=== PATIENT | male | born 1940 | race Caucasian/White ===

== ENCOUNTER 2019-01-10 15:17 | Inpatient (IN) | payer OTHER ==
[~2019-01-10] VITALS: Ht 170.2 cm; Wt 69.9 kg
[2019-01-10 15:22] VITALS: BP 104/65
--- NOTE | 2019-01-10 15:28 | NUR ---
PT W/C ASSISTED TO BED 3.
--- NOTE | 2019-01-10 15:40 | NUR ---
78/M C/O PAIN S/P FALL APPROX 10 MIN PRIOR TO ARRIVAL. PT FELL AND LANDED ON ENTIRE L SIDE OF BODY. DENIES LOC, DENIES HITTING HEAD. DENIES DIZZINESS/WEAKNESS PRIOR TO FALL. STATES HE DID NOT SEE A SMALL STEP AND TRIPPED AND FELL. STATES PAIN TO LEFT SIDE OF BODY, WORST AT LT RIBS, LT ELBOW, LT NECK. ABRASION NOTED TO LT ELBOW. NO BRUISING NOTED TO LT THORAX. STATES FEELS WEAK AFTER THE FALL. TYPICALLY USES WALKER, STATES UNABLE TO AMBULATE AT THIS TIME. GCS 15. NOTED B/L HANDS TREMBLING; HX PARKINSONS PMH- SCIATIC NERVE DAMAGE, CARDIAC ARREST X 4 MONTHS AGO, A GEN
--- NOTE | 2019-01-10 15:50 | NUR ---
DR. MEYER EVALUATING PT AT BEDSIDE.
[2019-01-10] MEDS ORDERED: MORPHINE SULFATE 4 MG/ML SYR IM ONE (16:00)
[2019-01-10] MEDS ORDERED: PROMETHAZINE 25 MG/ML VIAL IM ONE (16:00)
--- NOTE | 2019-01-10 16:11 | NUR ---
XRAY AT BEDSIDE.
--- NOTE | 2019-01-10 16:50 | NUR ---
VOLLEYBALL ASSEMBLER AT BEDSIDE TO TAKE PT TO CT SCAN.
--- NOTE | 2019-01-10 17:40 | NUR ---
PT IN ROOM BACK FROM CT SCAN, STATES PAIN HAS DECREASED; VSS.
[2019-01-10] MEDS ORDERED: MORPHINE SULFATE 2 MG/ML SYR IVP PRN (18:30)
[2019-01-10] MEDS ORDERED: ONDANSETRON 4 MG/2 ML VIAL IM/IVP PRN (18:30)
[2019-01-10] MEDS ORDERED: DOCUSATE SODIUM 100 MG GELCAP PO PRN (18:30)
--- NOTE | 2019-01-10 18:51 | NUR ---
EMT AT BEDSIDE FOR WOUND CARE.
[2019-01-10] MEDS ORDERED: KETOROLAC 15 MG/ML VIAL IVP PRN (19:20)
--- NOTE | 2019-01-10 19:40 | NUR ---
Patient will be admitted to care of DR. BARTH. Admited to TELE. Will go to room 107A. Belongings list completed. Report to SHANICE ALEJANDRE.
--- NOTE | 2019-01-10 19:46 | NUR ---
2MG MORPHINE IVP GIVEN PER REQUEST OF DR. Richy ESPITIA INDICATION: SEVERE PAIN. Addendum: 01/10/19 at 2013 by JUNIOR SHANICE EUGENE) AWARE.
[2019-01-10 20:00] VITALS: BP 116/68
--- NOTE | 2019-01-10 20:00 | NUR ---
PT BROUGHT UP BY VANE TO ROOM 107A AND TRANSFERRED TO BED A. PT IS AOX3, WITH SKIN INTACT EXCEPT FOR A LEFT ELBOW SKIN TEAR WHICH HAS BEEN DRESSED IN THE ER. PT PLACED ON FALLS PROTOCOL, MRSA SWAB DONE AND SENT TO LAB. PT SPOKE WITH SON MIGUEL NEWBERRY, NUMBER ([phone]). LAB DRAWS DONE AT BEDSIDE AND PT HAD BRIEF INTERVIEW WITH ADMITTING RESIDENT MD WALKER.
[2019-01-10 20:16] LABS: BASOPHILS % (AUTO) 0.4 % (0.0-2.0); EOSINOPHILS # (AUTO) 0.2 K/uL (0-0.4); EOSINOPHILS % (AUTO) 1.6 % (0.0-4.0); HEMATOCRIT 40.4 % (36-52); HEMOGLOBIN 13.5 g/dL (12.0-18.0); LYMPHOCYTES % (AUTO) 18.1 % (20.5-51.1); MEAN CORPUSCULAR HEMOGLOBIN 30 pg (27-31); MEAN CORPUSCULAR HGB CONC 34 g/dL (33-37); MEAN CORPUSCULAR VOLUME 87.9 fL (80-94); MONOCYTES % (AUTO) 9.2 % (1.7-9.3); NEUTROPHILS # (AUTO) 7.9 K/uL (1.8-7.7); NEUTROPHILS % (AUTO) 70.7 % (42.2-75.2); PLATELET COUNT (AUTO) 192 K/uL (140-450); RED BLOOD CELL COUNT(AUTO) 4.59 MIL/uL (4.20-6.10); RED CELL DISTRIBUTION WIDTH 14.2 % (11.6-13.7); WHITE BLOOD COUNT (AUTO) 11.2 K/uL (4.8-10.8)
--- NOTE | 2019-01-10 21:00 | NUR ---
NORMAL SODIUM RUNNING AT 1000 MLS/HR. PT RECEIVED REQUESTED ICE PACKS. SPOKE WITH PT OTHER SON MIGUEL REGARDING ADMISSION QUESTIONS AND HE WAS UPDATED REGARDING PT STATUS. PRIMARY CONTACT DIA ROHITH # [phone]. PT IN BED RESTING, ALL FALLS PRECAUTIONS IN PLACE.
[2019-01-10 21:06] LABS: ALBUMIN 3.8 g/dL (3.4-5.0); ASPARTATE AMINOTRANSFERASE 22 U/L (15-37); CHLORIDE 104 mmol/L (98-107); CREATININE 0.8 mg/dL (0.7-1.3); GLUCOSE 114 mg/dL (74-106); SODIUM SERUM 138 mmol/L (136-145); TOTAL BILIRUBIN 1.2 mg/dL (0.0-1.0); UREA NITROGEN, BLOOD 19 mg/dL (7-18)
[2019-01-10 21:15] LABS: MAGNESIUM 2.2 mg/dL (1.8-2.4); PHOSPHORUS 3.8 mg/dL (2.5-4.9); THYROID STIMULATING HORMONE 0.94 uIU/mL (0.34-3.74)
[2019-01-10 21:24] LABS: PROTHROMBIN TIME 10.1 secs (10.8-13.4)
[2019-01-10] MEDS: NACL 0.9% 1,000 ML IV SCH (22:00)
--- NOTE | 2019-01-10 22:00 | NUR ---
PT GIVEN ORDERED LOPRESSOR AND REQUESTED NORCO FOR PAIN. ALL FALLS PRECAUTIONS IN PLACE.
[2019-01-10] MEDS: METOPROLOL 25 MG TAB PO SCH (22:01)
[2019-01-10] MEDS: HYDROcodone/APAP 7.5/325 MG 1 TAB PO PRN (22:01)
--- NOTE | 2019-01-11 | NUR ---
PT IN BED ASLEEP BUT AROUSABLE TO LIGHT TOUCH AND NAME. V/S FOLLOWS : T 97.4 P 60 R 18 B/P 128/72 02 93% ON ROOM AIR. ALL REQUESTED NEEDS ATTENDED BY STAFF AND CALL STANLEY IN REACH. PT REPOSITIONED ON HIS BACK. PT DECLINES THE SUPPLEMENTAL 02 AND IS STATING 93% ON ROOM AIR. ALL FALLS PRECAUTIONS IN PLACE AND CALL STANLEY IN REACH.
--- NOTE | 2019-01-11 02:00 | NUR ---
PT IN BED SLEEPING SOUNDLY NO S/S OF PAIN OR DISTRESS NOTED, BED LOW CALL STANLEY IN REACH AND ALL FALLS PRECAUTIONS IN PLACE.
[2019-01-11 03:23] LABS: APPEARANCE,URINE CLEAR (CLEAR); BILIRUBIN,URINE NEGATIVE (NEGATIVE); BLOOD, URINE NEGATIVE (NEGATIVE); COLOR,URINE YELLOW (YELLOW); LEUKOCYTE ESTERASE ,URINE NEGATIVE (NEGATIVE); NITRITE, URINE NEGATIVE (NEGATIVE); UGLUCOSE NEGATIVE (NEGATIVE)
[2019-01-11 04:00] VITALS: BP 120/68
[2019-01-11] MEDS: NACL 0.9% 1,000 ML IV SCH ×3 (04:26→15:40)
--- NOTE | 2019-01-11 06:48 | NUR ---
PATIENT HAS BEEN SCREENED AND CATEGORIZED MODERATE NUTRITION RISK. PATIENT WILL BE SEEN WITHIN 3-5 DAYS OF ADMISSION. 01/13/19-01/15/19 KRISTOPHER RICHARDS MS, RDN
--- NOTE | 2019-01-11 07:15 | NUR ---
RECEIVED REPORT FROM FREIGHT ADJUSTER NURSE. PT AAOX 2-3, NO C/O PAIN AT THIS TIME. SON/DIA AT BEDSIDE. IV ON RT WRIST 22 GA RUNNING IVF PER ORDER. RESPIRATIONS EVEN AND UNLABORED ON RA. ACTIVE BS, SOFT ABD. PT ON FALL RISK PRECAUTIONS D/T BILATERAL RIB FRACTURE S/P FALL 01/10. SAFETY MEASURES IN PLACE, CALL LIGHT WITHIN REACH. REVIEWED POC WITH PT, PT VERBALIZED UNDERSTANDING.
[2019-01-11 07:28] LABS: CHOL/HDL RATIO 4.7 (1-4.5)
[2019-01-11 08:00] VITALS: BP 107/63
[2019-01-11] MEDS ORDERED: MORPHINE SULFATE 4 MG/ML SYR IVP PRN (08:10)
--- NOTE | 2019-01-11 08:45 | NUR ---
RECEIVED PT'S HOME MEDICATIONS. GIVEN TO PHARMACY FOR VERIFICATION.
[2019-01-11] MEDS ORDERED: [UNRECOGNIZED DRUG - OTHER] PO SCH (09:00)
[2019-01-11] MEDS: CLOPIDOGREL 75 MG TAB PO SCH (10:05)
[2019-01-11] MEDS: HYDROcodone/APAP 7.5/325 MG 1 TAB PO PRN ×2 (10:05→20:50)
[2019-01-11] MEDS: METOPROLOL 25 MG TAB PO SCH (10:05)
--- NOTE | 2019-01-11 10:05 | NUR ---
ADMINISTERED NORCO FOR LEVEL 3/10 BACK PAIN, WILL REASSESS PAIN WITHIN 1 HOUR.
[2019-01-11] MEDS ORDERED: [UNRECOGNIZED DRUG - OTHER] PO (10:16)
[2019-01-11] MEDS ORDERED: CARV3.12 PO (10:17)
[2019-01-11] MEDS ORDERED: DIGO-143 PO (10:18)
[2019-01-11] MEDS ORDERED: FURO-572 PO (10:23)
[2019-01-11] MEDS ORDERED: MULT1TAB99 PO (10:24)
[2019-01-11] MEDS ORDERED: DIPH50TA5 PO (10:29)
[2019-01-11] MEDS ORDERED: DOXY25TA42 PO (10:32)
[2019-01-11] MEDS ORDERED: PATIENTS OWN CAPSULE PO SCH (10:45)
--- NOTE | 2019-01-11 11:50 | NUR ---
PT GIVEN BEDPAN PER REQUEST. INSTRUCTED PT TO NOTIFY NURSE WHEN FINISHED.
[2019-01-11 12:00] VITALS: BP 106/58
--- NOTE | 2019-01-11 12:52 | NUR ---
ADMINISTERED INTESTINAL FORMULA PER ORDER, PT IS AWARE OF INDICATIONS AND POTENTIAL SIDE EFFECTS. RIVERA/SON AT BEDSIDE. PT HAS NO SIGNS OF DISTRESS OR C/O PAIN AT THIS TIME.
[2019-01-11] MEDS: KETOROLAC 15 MG/ML VIAL IM PRN (15:39)
--- NOTE | 2019-01-11 15:39 | NUR ---
ADMINISTERED TORADOL PER ORDER FOR LEVEL 7/10 BACK PAIN, PT IS AWARE OF INDICATIONS AND POTENTIAL SIDE EFFECTS.
[2019-01-11 16:00] VITALS: BP 111/58
--- NOTE | 2019-01-11 16:45 | NUR ---
PT'S FAMILY GIVEN UPDATE REGARDING PT'S CONDITION. PT HAS NO SIGNS OF DISTRESS AT THIS TIME.
--- NOTE | 2019-01-11 19:13 | NUR ---
RECEIVED BEDSIDE REPORT FROM DAPHNE ALEJANDRE DAYSHIFT NURSE FOR CONTINUITY OF CARE, PT IN STABLE CONDITION.
--- NOTE | 2019-01-11 19:13 | NUR ---
ENDORSED PT TO BSW NURSE SHANICE. PT HAS NO SIGNS OF DISTRESS AT THIS TIME.
--- NOTE | 2019-01-11 19:17 | NUR ---
ENDORSED PT TO POLICY CHANGE CLERKS SUPERVISOR NURSE BECKA. PT HAS NO SIGNS OF DISTRESS AT THIS TIME.
[2019-01-11 20:00] VITALS: BP 115/61
--- NOTE | 2019-01-11 20:00 | NUR ---
PT IN BED AOX2, IV SITE RIGHT WRIST 22G INTACT AND ASYMPTOMATIC. NORMAL SALINE IS RUINING AT 100MLS/HR ORDERED. PT IS WEARING ABDOMINAL BINDER. LUNG SOUNDS DIMINISHED DUE TO PT HAVING DIFFICULTY TAKING A DEEP BREATH DUE TO BILATERAL RIB FXS. BOWEL SOUNDS POSITIVE IN ALL 4 QUADS. V/S FOLLOWS : T 97.0 P 60 R 18 B/P 115/61 02 93% ON ROOM AIR.
[2019-01-11] MEDS: CARVEDILOL 3.125 MG TAB PO SCH (20:47)
[2019-01-11] MEDS: PATIENTS OWN CAPSULE PO SCH (20:48)
[2019-01-11] MEDS ORDERED: DOXYLAMINE SUCCINATE 50 MG PO SCH (21:00)
[2019-01-11] MEDS ORDERED: PATIENTS OWN TABLET PO SCH (21:00)
--- NOTE | 2019-01-11 21:00 | NUR ---
PT C/O OF FEELING CONSTIPATED DUE TO NOT HAVING BM IN 3 DAYS. PT WAS GIVEN PO/PRN COLACE WELL PT OWN MEDICATION FOR CONSTIPATION. PT ALSO RECEIVED A NORCO FOR 5/10 MODERATE PAIN IN RIBS, WELL ORDERED MEDICATION OF COREG FOR HTN AND INCREASE CARDIAC OUTPUT. EDUCATION REGARDING MEDICATION AND SIDE EFFECTS EXPLAINED. PT NEEDED REINFORCEMENT, BUT DID VERBALIZE UNDERSTANDING. PT ALSO EDUCATED ON INCENTIVE SPIROMETER AND ENCOURAGED TO USE IT TO PREVENT PNA. PT VERBALIZED UNDERSTANDING. ALL REQUESTED NEEDS ATTENDED, CALL STANLEY IN REACH AND ALL FALLS PRECAUTIONS IN PLACE.
--- NOTE | 2019-01-11 22:00 | NUR ---
PT REQUESTED BED WHITLEY WHICH WAS PROVIDED. WILL MONITOR FOR BM.
--- NOTE | 2019-01-11 22:20 | NUR ---
PT OFF BED WHITLEY, HE SAID HE FEEL LIKE MAYBE HE COULD HAVE A BM , BUT IT HASN'T COME. PT TAKEN OFF BED WHITLEY PULLED UP IN BED AND REPOSITIONED. PT ABDOMINAL BINDER WAS OPEN, PT SAID IT WAS TOO SMALL AND HE DINT WANT TO WEAR IT NOW. BENEFITS AND RISKS EXPLAINED. PT SAID HE WOULD WEAR IT LATER. ALL OTHER REQUESTED NEEDS ATTENDED AND CALL STANLEY IN REACH. ALL FALLS PRECAUTIONS IN PLACE.
[2019-01-12] VITALS: BP 126/58
--- NOTE | 2019-01-12 | NUR ---
PT HAD INCONTINENT EPISODE, WAS CLEANED AND REPOSITIONED IN BED. NEW BAG OF N/S PROVIDED. N/S RUNNING AT 100MLS/HR ORDERED. V/S FOLLOWS : T 97.6 P 60 R 18 B/P 126/58 02 94% ON ROOM AIR. ALL REQUESTED NEEDS ATTENDED AND CALL STANLEY IN REACH. ALL FALLS PRECAUTIONS IN PLACE.
[2019-01-12] MEDS: KETOROLAC 15 MG/ML VIAL IM PRN (03:20)
[2019-01-12] MEDS ORDERED: BISACODYL 10 MG SUPP RC SCH (03:40)
[2019-01-12 04:00] VITALS: BP 106/55
[2019-01-12] MEDS ORDERED: BISACODYL 10 MG SUPP RC ONE (05:34)
[2019-01-12] MEDS: HYDROcodone/APAP 7.5/325 MG 1 TAB PO PRN ×2 (05:34→18:17)
[2019-01-12 06:45] LABS: BASOPHILS % (AUTO) 0.3 % (0.0-2.0); EOSINOPHILS # (AUTO) 0.3 K/uL (0-0.4); EOSINOPHILS % (AUTO) 3.7 % (0.0-4.0); HEMATOCRIT 38.8 % (36-52); HEMOGLOBIN 12.9 g/dL (12.0-18.0); LYMPHOCYTES # (AUTO) 1.6 K/uL (2.0-11.5); LYMPHOCYTES % (AUTO) 17.7 % (20.5-51.1); MEAN CORPUSCULAR HEMOGLOBIN 30 pg (27-31); MEAN CORPUSCULAR HGB CONC 33 g/dL (33-37); MEAN CORPUSCULAR VOLUME 89.2 fL (80-94); MONOCYTES % (AUTO) 11.8 % (1.7-9.3); NEUTROPHILS # (AUTO) 5.9 K/uL (1.8-7.7); NEUTROPHILS % (AUTO) 66.5 % (42.2-75.2); PLATELET COUNT (AUTO) 165 K/uL (140-450); RED BLOOD CELL COUNT(AUTO) 4.35 MIL/uL (4.20-6.10); RED CELL DISTRIBUTION WIDTH 14.1 % (11.6-13.7); WHITE BLOOD COUNT (AUTO) 8.8 K/uL (4.8-10.8)
[2019-01-12 07:10] LABS: PHOSPHORUS 2.9 mg/dL (2.5-4.9)
[2019-01-12 07:11] LABS: ANION GAP 14.1 (8-16); CHLORIDE 107 mmol/L (98-107); CREATININE 0.8 mg/dL (0.7-1.3); GLUCOSE 107 mg/dL (74-106); POTASSIUM 4.1 mmol/L (3.5-5.1); SODIUM SERUM 141 mmol/L (136-145); UREA NITROGEN, BLOOD 16 mg/dL (7-18)
--- NOTE | 2019-01-12 07:35 | NUR ---
Received report from warehouse supervisor 3rd shift nurse. Pt is in stable condition. Call light in reach.
[2019-01-12 08:00] VITALS: BP 106/73
[2019-01-12] MEDS ORDERED: FUROSEMIDE 20 MG TAB PO SCH (09:00)
[2019-01-12] MEDS: DIGOXIN 0.125 MG TAB PO SCH (09:21)
[2019-01-12] MEDS: CLOPIDOGREL 75 MG TAB PO SCH (09:21)
[2019-01-12] MEDS: CARVEDILOL 3.125 MG TAB PO SCH ×2 (09:21→20:54)
[2019-01-12] MEDS: PATIENTS OWN CAPSULE PO SCH ×2 (09:21→20:55)
--- NOTE | 2019-01-12 09:30 | NUR ---
Pt is in bed resting in stable condition. Repositioned patient for comfort. Call light in reach.
--- NOTE | 2019-01-12 10:59 | NUR ---
Program Project Analyst Note: Basic Screen: Yes High Risk DC Screen Yes Name: DIA Esparza Relationship: SON Pre-Admission Living Arrangements: Lives with Other Prior ADL Independent Current Home Health Name/Tel: N/A Current DME/02 Name/Tel: [facility] Current Hospice Name/Tel: N/A Current Dialysis Name/Tel: N/A Healthcare Decision Maker: Patient Advance Directive No Physician Orders for Life Sustaining Treatment Form No Patient/Family Have Educational Needs No Information Taught: Advance Directive Person Taught: Patient Teaching Tools: Verbal Factors Affecting Learning: None Participation Level: Refused Needs Additional Education: No Discipline: Case Mgt/Social Svcs Tentative Discharge Plan/Destination: No Needs Identified Will require assistance post discharge: No Referred to Model Engine Mechanic: No Tentative Discharge Plan Summary: Patient is a 71 year old male admitted for bilateral rib fracture. Patient has PMHX of atrial fibrilation and possible parkinson's. Patient was admitted from home. SW verified demographics with patient. Patient's PCP is Dr. Delgado Mcclain and was last seen 3 months ago. Patient reports living with his son and daughter in law. SW offered education on advanced directive and patient refused. Patient reports no mental health history, no SI/HI, and no substance abuse history. Patient stated that his tentative discharge plan is to return home. No further needs identified. Signature: DIVINA Worley Date: Jan 12, 2019 Time: 10:59
--- NOTE | 2019-01-12 11:19 | NUR ---
Disregard previous assessment. Addendum: 01/12/19 at 1121 by Chema James SS Disregard previous note.
--- NOTE | 2019-01-12 11:30 | NUR ---
Pt is in bed resting in stable condition. Call light in reach.
[2019-01-12 12:00] VITALS: BP 132/72
[2019-01-12] MEDS: NACL 0.9% 1,000 ML IV SCH ×2 (14:00→20:26)
--- NOTE | 2019-01-12 14:00 | NUR ---
As per James from the Nuclear Med/ Bone scan dept. Pt is unable to lie down flat for the scan due to pain. It may not be possible to have a scan.
--- NOTE | 2019-01-12 14:30 | NUR ---
PATIENT IS IN BED RESTING AND IN STABLE CONDITION. NO COMPLAINS OF PAIN. ABDOMINAL BINDER IN PLACE. FAMILY BY BEDSIDE CALL LIGHT IN REACH.
--- NOTE | 2019-01-12 15:00 | NUR ---
SKIN TEAR TO LEFT ELBOW WITH VERSATEL DRESSING IN PLACE, AREA DRY AND CLEAN NO S/S OF INFECTION, RUSSELL WOUND SKIN INTACT. SON AT BED SIDE POC DISCUSSED.ALL QUESTIONS ANSWERED.
[2019-01-12 16:00] VITALS: BP 124/67
--- NOTE | 2019-01-12 18:00 | NUR ---
Pt is in bed resting in stable condition. No distress noted. Call light in reach.
--- NOTE | 2019-01-12 19:20 | NUR ---
RECEIVED BEDSIDE REPORT FROM DAY SHIFT NURSE. PATIENT IS AWAKE, ALERT, AND COOPERATIVE. RESPIRATION EVEN UNLABORED ON ROOM AIR. NO DISTRESS NOTED. SKIN IS WARM AND DRY. IV PATENT AND INTACT. LEFT ELBOW SKIN TEAR NOTED. SON AT BEDSIDE. PLAN OF CARE WAS DISCUSSED. ALL SAFETY MEASURES IN PLACE. BED IS AT LOW POSITION. CALL LIGHT WITHIN REACH. WILL CONTINUE TO MONITOR.
--- NOTE | 2019-01-12 19:40 | NUR ---
Shift report given to overnight stocker nurse. Pt is in stable condition. Call light in reach.
[2019-01-12 20:00] VITALS: BP 117/66
--- NOTE | 2019-01-12 20:00 | NUR ---
INITIAL ASSESSMENT DONE. VITALS WERE TAKEN. PATIENT IN STABLE CONDITION. NO DISTRESS NOTED. WILL CONTINUE TO MONITOR.
--- NOTE | 2019-01-12 21:00 | NUR ---
ALL SCHEDULED MEDS WERE GIVEN PER ORDER. NO ASE NOTED. WILL CONTINUE TO MONITOR.
--- NOTE | 2019-01-12 21:45 | NUR ---
PATIENT SLEEPING RESPIRATION EVEN UNLABORED ON ROOM AIR. NO DISTRESS NOTED. WILL CONTINUE TO MONITOR.
--- NOTE | 2019-01-12 22:38 | NUR ---
PATIENT ACCIDENTALLY PULLED HIS IV. CANNULA INTACT. MINIMAL BLEEDING NOTED. WILL CONTINUE TO MONITOR.
[2019-01-13] VITALS: BP 97/56
--- NOTE | 2019-01-13 | NUR ---
VITALS WERE TAKEN. PATIENT IN STABLE CONDITION. NO DISTRESS NOTED. WILL CONTINUE TO MONITOR.
--- NOTE | 2019-01-13 00:44 | NUR ---
PATIENT HAD A BOWEL MOVEMENT. CHANGED PATIENT AND PROVIDED GOOD PERICARE. WILL CONTINUE TO MONITOR.
[2019-01-13] MEDS: NACL 0.9% 1,000 ML IV SCH ×2 (00:53→16:57)
--- NOTE | 2019-01-13 01:05 | NUR ---
PATIENT WANTS TO TAKE OFF ABDOMINAL BINDER FOR COUPLE OF HOURS. PER PATIENT STATED TOO MUCH PAIN TO WEAR HIS ABDOMINAL BINDER. OFFER PAIN MEDS PATIENT REFUSED. WILL PLACE THE ABDOMINAL BINDER IN A COUPLE OF HOURS.
--- NOTE | 2019-01-13 01:50 | NUR ---
ABDOMINAL BINDER IN PLACE. NO DISTRESS NOTED. DENIES PAIN. WILL CONTINUE TO MONITOR.
[2019-01-13 04:00] VITALS: BP 135/70
[2019-01-13] MEDS: KETOROLAC 30 MG/ML VIAL IM PRN ×2 (04:00→14:40)
--- NOTE | 2019-01-13 04:00 | NUR ---
VITALS WERE TAKEN. PATIENT COMPLAINED OF PAIN 7/10. PRN PAIN MED ADMINISTERED PER ORDER. PATIENT ABDOMINAL BINDER WAS OPEN. PER PATIENT IT HURTS TO WEAR IT. EXPLAINED BENEFITS AND RISK. PATIENT SAID HE WOULD WEAR IT LATER. WILL CONTINUE TO MONITOR.
--- NOTE | 2019-01-13 07:13 | NUR ---
ENDORSED PATIENT TO DAY SHIFT NURSE. PATIENT IN STABLE CONDITION.
[2019-01-13 07:16] LABS: BASOPHILS % (AUTO) 0.3 % (0.0-2.0); EOSINOPHILS # (AUTO) 0.1 K/uL (0-0.4); EOSINOPHILS % (AUTO) 1.4 % (0.0-4.0); HEMATOCRIT 38.2 % (36-52); HEMOGLOBIN 12.9 g/dL (12.0-18.0); LYMPHOCYTES # (AUTO) 1.6 K/uL (2.0-11.5); LYMPHOCYTES % (AUTO) 18.9 % (20.5-51.1); MEAN CORPUSCULAR HEMOGLOBIN 30 pg (27-31); MEAN CORPUSCULAR HGB CONC 34 g/dL (33-37); MEAN CORPUSCULAR VOLUME 87.9 fL (80-94); MONOCYTES # (AUTO) 0.9 K/uL (0.8-1.0); MONOCYTES % (AUTO) 10.3 % (1.7-9.3); NEUTROPHILS # (AUTO) 5.9 K/uL (1.8-7.7); NEUTROPHILS % (AUTO) 69.1 % (42.2-75.2); PLATELET COUNT (AUTO) 176 K/uL (140-450); RED BLOOD CELL COUNT(AUTO) 4.35 MIL/uL (4.20-6.10); WHITE BLOOD COUNT (AUTO) 8.5 K/uL (4.8-10.8)
--- NOTE | 2019-01-13 07:18 | NUR ---
Shift report received from men's golf coach nurse. Pt is in bed in stable condition. Call light in reach.
[2019-01-13 07:38] LABS: CARBON DIOXIDE 23.7 mmol/L (21-32); CHLORIDE 108 mmol/L (98-107); CREATININE 0.7 mg/dL (0.7-1.3); GLUCOSE 106 mg/dL (74-106); POTASSIUM 3.7 mmol/L (3.5-5.1); SODIUM SERUM 142 mmol/L (136-145); UREA NITROGEN, BLOOD 10 mg/dL (7-18)
[2019-01-13 08:00] VITALS: BP 143/60
[2019-01-13] MEDS: CLOPIDOGREL 75 MG TAB PO SCH (09:05)
[2019-01-13] MEDS: CARVEDILOL 3.125 MG TAB PO SCH ×2 (09:06→20:54)
[2019-01-13] MEDS: PATIENTS OWN CAPSULE PO SCH ×2 (09:07→20:54)
--- NOTE | 2019-01-13 09:30 | NUR ---
As per PT, Pt ambulated in room. Pt tolerated well. Pt was back in bed with no signs of distress noted. Side rails up. Call light in reach.
--- NOTE | 2019-01-13 11:43 | NUR ---
DC PLANNIN78 Y/O MALE FROM HOME. ADMITTED DUE TO LEFT NECK, ELBOW AND RIB PAIN. PAST MEDICAL HISTORY INCLUDE A FIB AND CARDIAC ARREST. INITIAL DIAGNOSIS OF BILATERAL RIB FRACTURE 2/ FALL. WBC 11.2 ON ADMISSION. TODAY 8.5. NOT ON ANTIBIOTICS. ON [place] PO. CT SHOWED BILATERAL RIB FRACTURE. CONSULT WITH DR. GARCIA. ON ROOM AIR. DC PLAN PENDING ON PATIENT'S RESPONSE TO TREATMENT. Addendum: 01/13/19 at 1605 by Julianne Bullock CM RECEIVED AN ORDER FOR HOME HEALTH FOR PT AND HOME SAFETY EVALUATION. MET WITH THE PATIENT AT THE BEDSIDE TO DISCUSS DC PLAN. PATIENT STATED TO CALL FAMILY IF THEY ARE AGREEABLE. CONTACTED PATIENT'S SON DIA NEWBERRY AT [phone], NO ANSWER. LEFT MESSAGE. Addendum: 01/14/19 at 0865 by Julianne Bullock CM CONTACTED PATIENT'S SON DIA NEWBERRY AT [phone] TO DISCUSS DC PLANNING WITH HOME HEALTH FOR PHYSICAL THERAPY AND HOME SAFETY ALEJA. HE IS AGREEABLE TO THE PLAN. ALL CONCERNS AND QUESTIONS ANSWERED. CONTACTED [facility] AT [phone], ABLE TO SPEAK TO RODRIGO. MADE HER AWARE THAT THE PATIENT'S SON IS AGREEABLE TO THE PLAN. I TOLD HER THAT I WILL GIVE HER A CALL SOON I GET THE DC ORDER. Addendum: 01/14/19 at 1423 by Julianne Bullock CM CONTACTED RODRIGO OF [facility] TO INFORM HER THAT PATIENT IS DISCHARGING TODAY. DC SUMMARY FAXED TO [phone]. Addendum: 01/14/19 at 1450 by Julianne Bullock CM RODRIGO OF [facility] CONFIRMED THAT SHE RECEIVED FAXED DC SUMMARY. SHE STATED SHE WILL HAVE THE NURSE SEE THE PATIENT EITHER TOMORROW OR SATURDAY.
[2019-01-13 12:00] VITALS: BP 119/63
--- NOTE | 2019-01-13 12:30 | NUR ---
PT RESTING IN BED IN STABLE CONDITION. CALL LIGHT IN REACH.
--- NOTE | 2019-01-13 13:00 | NUR ---
REMOVED OLD DRESSING FROM LEFT ELBOW WOUND. DRESSING SOAKED WITH SANGUINOUS EXUDATE. CLEANED WOUND WITH NS PAT DRY. APPLIED NONADHERENT DRESSING WITH WRAP ON LEFT ELBOW. PT TOLERATED DRESSING CHANGE WELL WITH NO C/O PAIN. CALL LIGHT IN REACH.
[2019-01-13 16:00] VITALS: BP 121/67
--- NOTE | 2019-01-13 16:00 | NUR ---
PT IN RESTING IN BED IN STABLE CONDITION. CALL LIGHT IN REACH. FAMILY BY BEDSIDE.
--- NOTE | 2019-01-13 18:23 | NUR ---
PT IN RESTING IN BED IN STABLE CONDITION. CALL LIGHT IN REACH. FAMILY BY BEDSIDE.
--- NOTE | 2019-01-13 19:13 | NUR ---
Shift report given to retail shift manager nurse. Pt in stable condition. Call light in reach.
--- NOTE | 2019-01-13 19:26 | NUR ---
RECEIVED BEDSIDE REPORT FROM DAY SHIFT NURSE. PATIENT IS AWAKE, ALERT, AND COOPERATIVE. RESPIRATION EVEN UNLABORED ON ROOM AIR. NO DISTRESS NOTED. SKIN IS WARM AND DRY. IV PATENT AND INTACT. COMPLAINED OF HIP PAIN 4/. PRN PAIN MEDICATION WILL BE GIVEN PER ORDER. SON AT BEDSIDE. PLAN OF CARE WAS DISCUSSED. ALL SAFETY MEASURES IN PLACE. BED IS AT LOW POSITION. CALL LIGHT WITHIN REACH AND VERBALIZES ITS USE. WILL CONTINUE TO MONITOR.
[2019-01-13] MEDS: ACETAMINOPHEN 325 MG TAB PO PRN (19:47)
--- NOTE | 2019-01-13 19:47 | NUR ---
INITIAL ASSESSMENT DONE. VITALS WERE TAKNE. ADMINISTERED TYLENOL FOR MILD PAIN, WILL CONTINUE TO MONITOR.
[2019-01-13 20:00] VITALS: BP 130/90
--- NOTE | 2019-01-13 20:10 | NUR ---
PATIENT COMPLAINED OF NOT ABLE TO FALL ASLEEP. PROVIDED PATIENT SPONGE BATH AND MASSAGE. WILL CONTINUE TO MONITOR.
--- NOTE | 2019-01-13 20:45 | NUR ---
ALL SCHEDULED MEDS WERE GIVEN PER ORDER. NO ASE NOTED. WILL CONTINUE TO MONITOR
--- NOTE | 2019-01-13 21:30 | NUR ---
PATIENT SLEEPING RESPIRATION EVEN UNLABORED ON ROOM AIR. NO DISTRESS NOTED. WILL CONTINUE TO MONITOR.
[2019-01-14] VITALS: BP 115/67
[2019-01-14] MEDS ORDERED: Z-GUARD PASTE TP ONE (00:29)
--- NOTE | 2019-01-14 00:30 | NUR ---
PATIENT COMPLAINED OF BURNING AND ITCHINESS SCROTUM AREA. ASSESSED REDNESS NOTED. NOTIFY DR. ESPITIA. ORDERED FOR Z-GUARD APPLIED TO SCROTUM AREA. WILL CONTINUE TO MONITOR.
[2019-01-14] MEDS: KETOROLAC 30 MG/ML VIAL IM PRN ×2 (00:40→06:46)
--- NOTE | 2019-01-14 00:45 | NUR ---
PATIENT COMPLAINED OF BACK PAIN 09/03. PRN PAIN MED ADMINISTERED PER ORDER. WILL CONTINUE TO MONITOR.
--- NOTE | 2019-01-14 01:30 | NUR ---
PATIENT HAD A BOWEL MOVEMENT. PROVIDED GOOD RUSSELL CARE AND APPLIED Z-GUARD. WILL CONTINUE TO MONITOR.
--- NOTE | 2019-01-14 04:36 | NUR ---
CHECKED PATIENT. PATIENT SLEEPING RESPIRATION EVEN UNLABORED ON ROOM AIR. NO DISTRESS NOTED. WILL CONTINUE TO MONITOR.
[2019-01-14] MEDS: ACETAMINOPHEN 325 MG TAB PO PRN (04:56)
[2019-01-14] MEDS: NACL 0.9% 1,000 ML IV SCH (05:10)
--- NOTE | 2019-01-14 06:48 | NUR ---
PATIENT IS COMPLAINING OF BACK PAIN 10/10. PRN PAIN MED ADMINISTERED PER ORDER. WILL CONTINUE TO MONITOR.
--- NOTE | 2019-01-14 07:14 | NUR ---
ENDORSED PATIENT TO DAY SHIFT NURSE. PATIENT IN STABLE CONDITION.
--- NOTE | 2019-01-14 07:15 | NUR ---
RECEIVED REPORT FROM SHEET METAL WORK FURNACE INSTALLER NURSE. PT AAOX3, NO C/O PAIN. RESPIRATIONS EVEN AND UNLABORED ON RA. IV ON RT AC 22 GA RUNNING IVF PER ORDER. ABD SOFT, ACTIVE BS. NOTED SKIN TEAR TO LT ELBOW, SKIN IS WARM TO TOUCH. PT IS ON FALL RISK PRECAUTIONS, SAFETY MEASURES IN PLACE, CALL LIGHT WITHIN REACH. REVIEWED POC WITH PT, PT WILL NEED REINFORCEMENT.
[2019-01-14 07:58] LABS: BASOPHILS % (AUTO) 0.4 % (0.0-2.0); EOSINOPHILS # (AUTO) 0.3 K/uL (0-0.4); EOSINOPHILS % (AUTO) 3.3 % (0.0-4.0); HEMATOCRIT 37.8 % (36-52); HEMOGLOBIN 12.5 g/dL (12.0-18.0); LYMPHOCYTES # (AUTO) 1.6 K/uL (2.0-11.5); LYMPHOCYTES % (AUTO) 20.4 % (20.5-51.1); MEAN CORPUSCULAR HEMOGLOBIN 29 pg (27-31); MEAN CORPUSCULAR HGB CONC 33 g/dL (33-37); MEAN CORPUSCULAR VOLUME 88.6 fL (80-94); MONOCYTES # (AUTO) 0.9 K/uL (0.8-1.0); MONOCYTES % (AUTO) 11.8 % (1.7-9.3); NEUTROPHILS # (AUTO) 5.1 K/uL (1.8-7.7); NEUTROPHILS % (AUTO) 64.1 % (42.2-75.2); PLATELET COUNT (AUTO) 175 K/uL (140-450); RED BLOOD CELL COUNT(AUTO) 4.26 MIL/uL (4.20-6.10)
[2019-01-14 08:00] VITALS: BP 127/67
[2019-01-14 08:16] LABS: ANION GAP 13.6 (8-16); CARBON DIOXIDE 24.1 mmol/L (21-32); CHLORIDE 108 mmol/L (98-107); CREATININE 0.7 mg/dL (0.7-1.3); GLUCOSE 104 mg/dL (74-106); POTASSIUM 3.7 mmol/L (3.5-5.1); SODIUM SERUM 142 mmol/L (136-145); UREA NITROGEN, BLOOD 12 mg/dL (7-18)
[2019-01-14] MEDS: HYDROcodone/APAP 7.5/325 MG 1 TAB PO PRN ×2 (08:55→13:19)
[2019-01-14] MEDS: DIGOXIN 0.125 MG TAB PO SCH (08:55)
[2019-01-14] MEDS: CLOPIDOGREL 75 MG TAB PO SCH (08:55)
[2019-01-14] MEDS: CARVEDILOL 3.125 MG TAB PO SCH (08:56)
[2019-01-14] MEDS: PATIENTS OWN CAPSULE PO SCH (08:59)
--- NOTE | 2019-01-14 08:59 | NUR ---
ADMINISTERED MEDICATIONS PER ORDER, PT VERBALIZES UNDERSTANDING OF INDICATIONS AND POTENTIAL SIDE EFFECTS.
[2019-01-14] MEDS ORDERED: INFLUENZA VACCINE QUAD 0.5 ML SYR IMVAC PRN (11:00)
--- NOTE | 2019-01-14 11:00 | NUR ---
PT GIVEN SKIN AND RUSSELL CARE. PT HAS NO SIGNS OF DISTRESS.
[2019-01-14] MEDS ORDERED: HYDR-5092 PO (11:23)
--- NOTE | 2019-01-14 12:15 | NUR ---
RECEIVED CALL FROM SON/DIA, NOTIFIED THAT PT WILL BE DISCHARGED TODAY. PER SON, WILL BE COMING AFTER 2 PM TODAY.
--- NOTE | 2019-01-14 14:40 | NUR ---
PT HAS BEEN DISCHARGED. ALL PAPERWORK SIGNED BY SON/DIA. ALL QUESTIONS ANSWERED. ALL BELONGINGS AND PRESCRIPTIONS IN PT POSSESSION. IV DISCONTINUED WITH CANNULA INTACT. WRISTBANDS REMOVED. PT TRANSFERRED OUT OF [facility] VIA WHEELCHAIR, FAMILY AT SIDE. PT IS IN STABLE CONDITION.
== END 2019-01-14 14:39 | disposition home health service (06) | DRG 205 ==
LOC: MED 15:17 → MTU 18:36
PROVIDERS: ADMIT General Practice; ATTEND General Practice
DX: S22.32XA Fracture of one rib, left side, initial encounter for closed fracture (principal); G93.41 Metabolic encephalopathy; S22.31XA Fracture of one rib, right side, initial encounter for closed fracture; D72.829 Elevated white blood cell count, unspecified; Z86.74 Personal history of sudden cardiac arrest; I48.91 Unspecified atrial fibrillation; M43.13 Spondylolisthesis, cervicothoracic region; K76.89 Other specified diseases of liver; F43.9 Reaction to severe stress, unspecified; S50.02XA Contusion of left elbow, initial encounter; W18.30XA Fall on same level, unspecified, initial encounter; Y93.89 Activity, other specified; Y92.89 Other specified places as the place of occurrence of the external cause; Y99.8 Other external cause status; Z98.1 Arthrodesis status
CPT/HCPCS: 36415; 71045; 71250; 72125; 73080; 76705; 80048; 80053; 81003; 83036; 83735; 84100; 84443; 85025; 85610; 85730; 87081; 96372; 96374; 97110; 97112; 97116; 97161-GP; 97530; 99285; J1885; J2270; J2550; J7030; Q0092